=== PATIENT | female | born 1945 | race Caucasian/White ===

== ENCOUNTER 2021-09-06 17:00 | Emergency (ER) | payer OTHER ==
[2021-09-06] MEDS ORDERED: NA CHLORIDE 0.9% 1,000 ML ONE (20:10)
--- NOTE | 2021-09-06 20:41 | RAD REPORT ---
EXAM DESCRIPTION: RAD - Chest Single View - 09/06/2021 8:09 pm CLINICAL HISTORY: dizzy Chest pain. COMPARISON: Chest Pa And Lat (2 Views) dated 08/22/2016; CHEST SINGLE VIEW dated 04/22/2015; CHEST SIN GLE VIEW dated 04/20/2015; CHEST SINGLE VIEW dated 04/19/2015 FINDINGS: Portable technique limits examination quality. The lungs are grossly clear. The heart is normal in size. No displaced fractures. IMPRESSION: No acute intrathoracic process suspected.
--- NOTE | 2021-09-06 20:43 | RAD REPORT ---
EXAM DESCRIPTION: CT - Head Brain Wo Cont - 09/06/2021 8:10 pm CLINICAL HISTORY: dizziness, unsteady gait Headache, drowsiness COMPARISON: No comparisons TECHNIQUE: All CT scans are performed using dose optimization technique as appropriate and may inclu de automated exposure control or mA/KV adjustment according to patient size. FINDINGS: No intracranial hemorrhage, hydrocephalus or extra-axial fluid collection.Moderate general ized brain atrophy is present. Calcified 15 mm extra-axial lesion along the left frontal convexity li sharlene represents calcified meningioma.No areas of brain edema or evidence of midline shift. The paranasal sinuses and mastoids are clear. The calvarium is intact. IMPRESSION: No acute intracranial abnormality.
[2021-09-06 21:07] LABS: Absolute Lymphocytes (CBC) 1.7 K/uL (0.7-4.9); Hematocrit 41.7 % (36.0-45.0); MCV 84.2 fL (80-100); MPV 7.7 fL (7.6-11.3); RBC Red Blood Cell Count 4.95 M/uL (3.86-4.86)
[2021-09-06 21:26] LABS: Magnesium 2.3 mg/dL (1.8-2.4); Troponin High Sensitivity 8.6 pg/mL (<58.9)
[2021-09-06] MEDS ORDERED: POTASSIUM 25 MEQ EFFERV TAB ONE (23:08)
[2021-09-07 03:36] VITALS: TEMP 98.1; O2SAT 100
[2021-09-07 03:43] VITALS: BP 158/84
--- OUTSIDE RECORDS SUMMARY | 2021-09-07 10:56 | XMS REPORT | Continuity of Care Document ---
:1945 Author Organization [facility] t Address [address] [place] [address] Care Team Providers Name Role Phone JANELL PADILLA Primary Care Physician Unavailable Ann Mora Attending Clinician ANN RIVERA Attending Clinician Unavailable DR SALLY CAMPBELL Attending Clinician Unavailable DR SALLY CAMPBELL Admitting Clinician Unavailable Payers Payer Name Policy Type Policy Number Effective Date Expiration Date S ource Problems Condition Condition Condition Status Onset Resolution Last Treating Co mments Source Name Details Category Date Date Treatment Clinician Date No known No known Disease Unive rs active active ity of problems problems [facility] Allergies, Adverse Reactions, Alerts Allergy Allergy Status Severity Reaction(s) Onset Inactive Treating Comm ents Source Name Type Date Date Clinician NO KNOWN Drug Active Univers ALLERGIE Class ity of S [facility] Social History Social Habit Start Date Stop Date Quantity Comments Source Exposure to Not sure [facility] SARS-CoV-2 (event) Medica l Branch Tobacco use and 2020-10-26 2020-10-26 Never used [facility] exposure 00:00:00 00:00:00 [facility] Sex [birth year] [facility] 00:00:00 00:00:00 [facility] Smoking Status Start Date Stop Date Source Never smoker [facility] Medications Ordered Filled Start Stop Current Ordering Indication Dosage Frequency Signature Comments Components Source Medication Medication Date Date Medication? Clinician (SIG) Name Name ondansetron 2020-02 Yes [id number] 4mg Take 1 Univers (ZOFRAN 2-20 tablet by ity of ODT) 4 mg 00:00: mouth [place] disintegrat 00 every 8 Medic al ing tablet (eight) Branch hours as needed for Nausea and Vomiting (N/V). ondansetron 1 Yes [id number] 4mg Take 1 Univers (ZOFRAN 2-20 tablet by ity of ODT) 4 mg 00:00: mouth [place] disintegrat 00 every 8 Medic al ing tablet (eight) Branch hours as needed for Nausea and Vomiting (N/V). methylPREDN 2020-0 Yes [id number] 84mg Take 21 Univers ISolone 9-30 tablets by ity of (MEDROL, 00:00: mouth [place] MARIBEL,) 4 mg 00 SEE-INSTRU Med ical tablets CTIONS. Branch follow package directions methylPREDN 2020-0 Yes [id number] 84mg Take 21 Univers ISolone 9-30 tablets by ity of (MEDROL, 00:00: mouth [place] MARIBEL,) 4 mg 00 SEE-INSTRU Med ical tablets CTIONS. Branch follow package directions potassium 2020-0 Yes Univers chloride 10 9-09 ity of mEq CR 00:00: [place] tablet 00 [facility] simvastatin 2020-0 Yes Univer s 20 mg 9-09 ity of tablet 00:00: [place] [facility] potassium 2020-0 Yes Univers chloride 10 9-09 ity of mEq CR 00:00: [place] tablet 00 [facility] simvastatin 2020-0 Yes Univer s 20 mg 9-09 ity of tablet 00:00: [place] [facility] NIFEdipine 2020-0 Yes Univers ER 60 mg 7-03 ity of tablet 00:00: [place] [facility] NIFEdipine 2020-0 Yes Univers ER 60 mg 7-03 ity of tablet 00:00: [place] [facility] hydroCHLORO 2020-0 Yes Univer s thiazide 6-29 ity of 12.5 mg 00:00: [place] tablet 00 [facility] hydroCHLORO 2020-0 Yes Univer s thiazide 6-29 ity of 12.5 mg 00:00: [place] tablet [facility] Vital Signs Vital Name Observation Time Observation Value Comments Source Systolic blood 2021-03-11 136 mm[Hg] University of pressure 14:02:00 [facility] Diastolic blood 2021-03-11 87 mm[Hg] University o f pressure 14:02:00 [facility] Heart rate 2021-03-11 86 /min [facility] 14:02:00 [facility] Body height 2021-03-11 157.5 cm University 14:02:00 [facility] Body weight 2021-03-11 72.576 kg pt reported, University 14:02:00 wheel chair [facility] BMI 2021-03-11 29.26 kg/m2 University 14:02:00 [facility] Oxygen saturation 2021-03-11 95 /min [facility] Arterial blood 14:02:00 [facility] by Pulse oximetry Branch Procedures Procedure Date / Time Performed Performing Clinician Alhaji e XR ANKLE 3+ VW LEFT 2021-03-11 14:52:00 Ann Rivera [facility] Encounters Start End Encounter Admission Attending Care Care Encounter Source Date/Time Date/Time Type Type Clinicians Facility Department ID 2021-03-11 2021-03-11 [facility] [id number] Univers 08:25:00 23:59:00 Encounter [facility] [id number] ity juan [place] [id number] Rene as HANNA?BLEA [id number] Mo dicjose david MONTANO [address] MEDICAL OFFICE [facility] 2021-03-11 2021-03-11 [facility] [id number] Univers 08:15:00 09:10:21 ANN [facility] 2021-03-11 2021-03-11 Office [facility] [id number] Univers 08:15:00 08:30:00 Visit [facility] [id number] it y of [place] [id number] Rene as HANNA?BLEA [id number] Mo dical CHARMAINE [address] MEDICAL OFFICE BUILDING 2015-03-13 2015-03-18 Inpatient SALLY LOUISE [facility] TELE [id number] [facility] [place] [facility] 15:20:00 11:02:00 [facility] Results This patient has no known results.
--- NOTE | 2021-09-08 09:54 | ER ---
Nurse's Notes [facility] Name: Letty Lott Age: 76 yrs Sex: Female : 1945 Arrival Date: 09/06/2021 Time: 17:01 Bed 25 Private MD: Timi Peterson E Diagnosis: Dizziness and giddiness;Weakness;Hypokalemia Presentation: 09/06 17:18 Chief complaint: Patient states: pt presented to ed reporting dizziness and feels like gale the room is spinning. Coronavirus screen: Vaccine status: Patient reports receiving the 2nd dose of the covid vaccine. Ebola Screen: Patient denies travel to an Ebola-affected area in the 21 days before illness onset. Initial Sepsis Screen: Does the patient meet any 2 criteria? HR > 90 bpm. No. Patient's initial sepsis screen is negative. Does the patient have a suspected source of infection? No. Patient's initial sepsis screen is negative. Risk Assessment: Do you want to hurt yourself or someone else? Patient reports no desire to harm self or others. Onset of symptoms was September 04, 2021. 17:18 Method Of Arrival: Wheelchair gale 17:18 Acuity: MARIANNA 3 gale Historical: - Allergies: 17:20 antibiotics; gale - PMHx: 17:20 Hypertension; gale - Immunization history:: Adult Immunizations up to date. - Social history:: Smoking status: Patient denies any tobacco usage or history of. Screenin:17 Abuse screen: Denies threats or abuse. Nutritional screening: No deficits noted. bb Tuberculosis screening: No symptoms or risk factors identified. Fall Risk Secondary diagnosis (15 points) impaired mobility, IV access (20 points). Ambulatory Aid- None/Bed Rest/Nurse Assist (0 pts). Gait- Weak (10 pts.). Mental Status- Oriented to own ability (0 pts). Total Dickson Fall Scale indicates High Risk Score (45 or more points). Fall prevention measures have been instituted. Side Rails Up X 2 As available patient and family educated on Fall Prevention Program and Strategies. Assessment: 20:17 General: Appears in no apparent distress. Behavior is calm, cooperative. Pain: Denies bb pain. Neuro: Level of Consciousness is awake, alert, obeys commands, Oriented to person, place, time, situation. Cardiovascular: Capillary refill < 3 seconds Patient's skin is warm and dry. Respiratory: Respiratory effort is even, unlabored, Respiratory pattern is regular. GI: No signs and/or symptoms were reported involving the gastrointestinal system. Derm: Skin is pink, warm \T\ dry. Musculoskeletal: Circulation, motion, and sensation intact. Reports she is unsteady on her feet. 20:53 Reassessment: Patient is alert, oriented x 3, equal unlabored respirations, skin bb warm/dry/pink. daughter at bedside awaiting diagnostic results. 21:45 Reassessment: IV to left AC infiltrated discontinued IV catheter intact, bleeding bb controlled, bandaid applied, arm elevated and cool compress applied provider notified. 23:04 Reassessment: Dr Jimenez at bedside for discussion of findings and recommendations pt bb to be discharged home with family. Pt verbalized understanding of and agrees to plan of care. 23:29 Reassessment: Patient is alert, oriented x 3, equal unlabored respirations, skin bb warm/dry/pink. pt given discharge instructions verbalized understanding assisted to exit via wheelchair by this RN accompanied by family. Vital Signs: 17:18 BP 148 / 80; Pulse 98; Resp 18; Temp 97.6(T); Pulse Ox 98% ; Weight 72.57 kg; Height 5 gale ft. 3 in. (160.02 cm); 21:00 BP 143 / 8; Pulse 80; Resp 18; Temp 98.1(O); Pulse Ox 100% on R/A; wm 21:46 BP 158 / 87; Pulse 78; Resp 16 S; Pulse Ox 100% on R/A; bb 22:35 BP 125 / 77 RA Supine (/reg); Pulse 79; wm 22:35 BP 157 / 98 RA Sitting; Pulse 107; wm 22:35 BP 137 / 79 RA Standing; Pulse 103; wm 23:29 BP 158 / 84; Pulse 80; Resp 16 S; Pulse Ox 100% on R/A; bb 17:18 Body Mass Index 28.34 (72.57 kg, 160.02 cm) gale ED Course: 17:01 Patient arrived in ED. am2 17:01 Timi Peterson MD is Private Physician. am2 17:19 Triage completed. gale 19:40 Babatunde Jimenez MD is Attending Physician. kdr 20:01 Bateman, Kristin, RN is Primary Nurse. bb 20:11 XRAY Chest (1 view) In Process Unspecified. EDMS 20:12 Head Brain Wo Cont In Process Unspecified. EDMS 20:17 Patient has correct armband on for positive identification. Bed in low position. Call bb light in reach. Side rails up X 1. Adult w/ patient. Client placed on continuous cardiac and pulse oximetry monitoring. NIBP monitoring applied. Warm blanket given. 20:33 Missed attempt(s): 22 gauge in left antecubital area. wm 20:50 Initial lab(s) drawn, by me, sent to lab. Inserted saline lock: 20 gauge in left bb antecubital area, using aseptic technique. Blood collected. Missed attempt(s): 20 gauge in right antecubital area. Bleeding controlled, band aid applied, catheter tip intact. 21:45 IV discontinued, intact, bleeding controlled, No redness/swelling at site. Pressure bb dressing applied. 23:05 Timi Peterson MD is Referral Physician. kdr 23:30 No provider procedures requiring assistance completed. bb Administered Medications: 23:31 Discontinued: NS 0.9% 500 ml IV at bolus once bb 20:55 Drug: NS 0.9% 500 ml Route: IV; Rate: bolus; Site: left antecubital; bb 23:04 Drug: Potassium Effervescent Tablet 50 mEq Route: PO; bb 23:30 Follow up: Response: No adverse reaction bb 23:30 Not Given (Physician Discretion): NS 0.9% 1000 ml IV at 125 ml/hr continuous bb Medication: 23:32 VIS not applicable for this client. bb Outcome: 23:06 Discharge ordered by . kdr 23:31 Discharged to home via wheelchair, with family. bb 23:31 Condition: stable 23:31 Discharge instructions given to patient, Instructed on discharge instructions, follow up and referral plans. medication usage, Demonstrated understanding of instructions, follow-up care, medications, Prescriptions given X 2. 23:32 Patient left the ED. bb Signatures: Dispatcher [employer] EDMS Babatunde Jimenez MD MD kdr Ballard, Brenda RN RN Amy Alcantara Wendy Gina-StagerJocelyn RN RN gale
--- NOTE | 2021-09-08 09:54 | EDPHYS ---
Physician Documentation [facility] Name: Letty Lott Age: 76 yrs Sex: Female : 1945 Arrival Date: 09/06/2021 Time: 17:01 Bed 25 Private MD: Timi Peterson E ED Physician Babatunde Jimenez HPI: 09/06 20:04 This 76 yrs old Female presents to ER via Wheelchair with complaints of Dizziness, kdr unsteady on feet. 20:04 Patient states that for the last few days she has been increasingly weak and dizzy kdr feeling when she stands. She had similar symptoms before when she has had diarrhea. She is not in any acute distress in the ED. She is nontoxic-appearing.. Onset: The symptoms/episode began/occurred gradually, 2 day(s) ago. Severity of symptoms: At their worst the symptoms were mild just prior to arrival, in the emergency department the symptoms are unchanged. The patient has experienced similar episodes in the past, several times. The patient has not recently seen a physician. Historical: - Allergies: 17:20 antibiotics; gale - PMHx: 17:20 Hypertension; gale - Immunization history:: Adult Immunizations up to date. - Social history:: Smoking status: Patient denies any tobacco usage or history of. ROS: 20:04 Constitutional: Negative for fever, chills, and weight loss, Eyes: Negative for injury, kdr pain, redness, and discharge, ENT: Negative for injury, pain, and discharge, Neck: Negative for injury, pain, and swelling, Cardiovascular: Negative for chest pain, palpitations, and edema, Respiratory: Negative for shortness of breath, cough, wheezing, and pleuritic chest pain, Back: Negative for injury and pain, : Negative for injury, bleeding, discharge, and swelling, MS/Extremity: Negative for injury and deformity, Skin: Negative for injury, rash, and discoloration, Psych: Negative for depression, anxiety, suicide ideation, homicidal ideation, and hallucinations, Allergy/Immunology: Negative for hives, rash, and allergies, Endocrine: Negative for neck swelling, polydipsia, polyuria, polyphagia, and marked weight changes, Hematologic/Lymphatic: Negative for swollen nodes, abnormal bleeding, and unusual bruising. 20:04 Abdomen/GI: Positive for nausea, diarrhea, Negative for abdominal pain. Exam: 20:04 Constitutional: This is a well developed, well nourished patient who is awake, alert, kdr and in no acute distress. Head/Face: Normocephalic, atraumatic. Eyes: Pupils equal round and reactive to light, extra-ocular motions intact. Lids and lashes normal. Conjunctiva and sclera are non-icteric and not injected. Cornea within normal limits. Periorbital areas with no swelling, redness, or edema. Neck: Trachea midline, no thyromegaly or masses palpated, and no cervical lymphadenopathy. Supple, full range of motion without nuchal rigidity, or vertebral point tenderness. No Meningismus. Chest/axilla: Normal chest wall appearance and motion. Nontender with no deformity. No lesions are appreciated. Cardiovascular: Regular rate and rhythm with a normal S1 and S2. No gallops, murmurs, or rubs. Normal PMI, no JVD. No pulse deficits. Respiratory: Lungs have equal breath sounds bilaterally, clear to auscultation and percussion. No rales, rhonchi or wheezes noted. No increased work of breathing, no retractions or nasal flaring. Abdomen/GI: Soft, non-tender, with normal bowel sounds. No distension or tympany. No guarding or rebound. No evidence of tenderness throughout. Back: No spinal tenderness. No costovertebral tenderness. Full range of motion. Skin: Warm, dry with normal turgor. Normal color with no rashes, no lesions, and no evidence of cellulitis. MS/ Extremity: Pulses equal, no cyanosis. Neurovascular intact. Full, normal range of motion. Neuro: Awake and alert, GCS 15, oriented to person, place, time, and situation. Cranial nerves II-XII grossly intact. Motor strength 5/5 in all extremities. Sensory grossly intact. Cerebellar exam normal. Normal gait. Psych: Awake, alert, with orientation to person, place and time. Behavior, mood, and affect are within normal limits. Vital Signs: 17:18 BP 148 / 80; Pulse 98; Resp 18; Temp 97.6(T); Pulse Ox 98% ; Weight 72.57 kg; Height 5 gale ft. 3 in. (160.02 cm); 21:00 BP 143 / 8; Pulse 80; Resp 18; Temp 98.1(O); Pulse Ox 100% on R/A; wm 21:46 BP 158 / 87; Pulse 78; Resp 16 S; Pulse Ox 100% on R/A; bb 22:35 BP 125 / 77 RA Supine (/reg); Pulse 79; wm 22:35 BP 157 / 98 RA Sitting; Pulse 107; wm 22:35 BP 137 / 79 RA Standing; Pulse 103; wm 23:29 BP 158 / 84; Pulse 80; Resp 16 S; Pulse Ox 100% on R/A; bb 17:18 Body Mass Index 28.34 (72.57 kg, 160.02 cm) gale MDM: 20:04 Data reviewed: vital signs, nurses notes, lab test result(s). Counseling: I had a kdr detailed discussion with the patient and/or guardian regarding: the historical points, exam findings, and any diagnostic results supporting the discharge/admit diagnosis, lab results. 23:06 Patient medically screened. kdr 09/06 19:43 Order name: Basic Metabolic Panel; Complete Time: 21:38 kdr 09/06 19:43 Order name: CBC with Diff; Complete Time: 21:08 kdr 09/06 18:10 Order name: CT Head Brain wo Cont rn 09/06 18:16 Order name: Head Brain Wo Cont; Complete Time: 21:08 EDMS 09/06 19:43 Order name: Magnesium; Complete Time: 21:38 kdr 09/06 19:43 Order name: Troponin HS; Complete Time: 21:38 kdr 09/06 19:43 Order name: XRAY Chest (1 view); Complete Time: 21:08 kdr 09/06 19:43 Order name: Cardiac monitoring; Complete Time: 20:55 kdr 09/06 19:43 Order name: EKG - Nurse/Tech; Complete Time: 20:55 kdr 09/06 19:43 Order name: IV Saline Lock; Complete Time: 20:55 kdr 09/06 19:43 Order name: Labs collected and sent; Complete Time: 20:55 kdr 09/06 21:08 Order name: Orthostatic Blood Pressure; Complete Time: 22:40 kdr Administered Medications: 23:31 Discontinued: NS 0.9% 500 ml IV at bolus once bb 20:55 Drug: NS 0.9% 500 ml Route: IV; Rate: bolus; Site: left antecubital; bb 23:04 Drug: Potassium Effervescent Tablet 50 mEq Route: PO; bb 23:30 Follow up: Response: No adverse reaction bb 23:30 Not Given (Physician Discretion): NS 0.9% 1000 ml IV at 125 ml/hr continuous bb Disposition Summary: 09/06/21 23:06 Discharge Ordered Location: Home kdr Problem: new kdr Symptoms: have improved kdr Condition: Stable kdr Diagnosis - Dizziness and giddiness kdr - Weakness kdr - Hypokalemia kdr Followup: kdr - With: Timi Peterson MD - When: 2 - 3 days - Reason: If symptoms return, Further diagnostic work-up, Recheck today's complaints, Continuance of care, Re-evaluation by your physician Discharge Instructions: - Discharge Summary Sheet kdr - Dizziness kdr - Weakness kdr - Hypokalemia kdr Forms: - Medication Reconciliation Form kdr - Thank You Letter kdr Prescriptions: - Meclizine 25 mg Oral Tablet - take 1 tablet by ORAL route every 8 hours As needed; 30 tablet; Refills: 0, kdr Product Selection Permitted - Potassium Chloride 20 meq Oral Packet - take 1 packet by ORAL route once daily 1 packet in 6 (six) ounces of water or kdr juice; Take after meal; 30 packet; Refills: 0, Product Selection Permitted Signatures: Dispatcher [employer] Babatunde Mendiola MD MD kdr Kristin Bateman RN RN Jocelyn Toscano RN RN gale
== END 2021-09-06 23:32 | disposition home or self-care (01) ==
LOC: ER 17:00
DX: E87.6 Hypokalemia (principal); R53.1 Weakness; R11.0 Nausea; R19.7 Diarrhea, unspecified; I10 Essential (primary) hypertension; Z88.1 Allergy status to other antibiotic agents
CPT/HCPCS: 85025; 80048; 36415; 83735; 84484; 70450; 71045; J7030; 99284